=== PATIENT | male | born 1995 | race Caucasian/White ===

== ENCOUNTER 2022-04-07 18:22 | Emergency (ER) | payer OTHER ==
[2022-04-07] MEDS ORDERED: NAPROXEN500 MG PO (20:23)
[2022-04-07] MEDS ORDERED: NORCO 5-325 TA1 EACH PO (20:23)
== END 2022-04-07 20:50 | disposition home or self-care (01) ==
LOC: FER 18:22
DX: S62.357A Nondisplaced fracture of shaft of fifth metacarpal bone, left hand, initial encounter for closed fracture (principal); M79.671 Pain in right foot; F17.290 Nicotine dependence, other tobacco product, uncomplicated; Z28.310 Unvaccinated for COVID-19; Z88.8 Allergy status to other drugs, medicaments and biological substances; W22.09XA Striking against other stationary object, initial encounter; Y92.009 Unspecified place in unspecified non-institutional (private) residence as the place of occurrence of the external cause
CPT/HCPCS: 73120; 73620